=== PATIENT | female | born 2000 | race Caucasian/White ===

== ENCOUNTER 2018-07-10 17:17 | Emergency (ER) | payer SELFPAY ==
[2018-07-10] MEDS ORDERED: KETOROLAC TROMETHAMINE INJ/PF 30 MG/1 ML SDV IM ONE (18:13)
[2018-07-10] MEDS ORDERED: ONDANSETRON 4 MG TAB.RAPDIS PO ONE (18:13)
--- NOTE | 2018-07-10 18:15 | ER Document Report ---
ED Medical Screen (RME) - General Chief Complaint: Pain With Urination Stated Complaint: PAIN WITH URINATION/ABDOMINAL PAIN Time Seen by Provider: 07/10/18 18:13 Notes: 18 years old female presents today with 4-5 day history of dysuria frequency and urgency, and having bilateral lower back pain from today. As well as lower abdominal pain. Denies any nausea vomiting. Denies any constipation but she usually have a bowel movement once in 2-3 days. Her menstrual cycle ended today. Never been . TRAVEL OUTSIDE OF THE [place] IN LAST 30 DAYS: No - Related Data Allergies/Adverse Reactions: No Known Allergies Allergy (Verified 07/10/18 17:36) Past Medical History - General Last Menstrual Period: ended Jun - Social History Chew tobacco use (# tins/day): No Frequency of alcohol use: None Drug Abuse: None Renal/ Medical History: Denies: Hx Peritoneal Dialysis Physical Exam - Vital signs Vitals: Temp Pulse Resp BP Pulse Ox 98.9 F 85 16 128/73 H 98 07/10/18 17:53 07/10/18 17:53 07/10/18 17:53 07/10/18 17:53 07/10/18 17:53 Course - Vital Signs Vital signs: Temp Pulse Resp BP Pulse Ox 98.9 F 85 16 128/73 H 98 07/10/18 17:53 07/10/18 17:53 07/10/18 17:53 07/10/18 17:53 07/10/18 17:53
[2018-07-10 18:39] LABS: ABSOLUTE BASOPHILS # (AUTO) 0.1 10^3/uL (0.0-0.2); ABSOLUTE EOSINOPHILS # (AUTO) 0.3 10^3/uL (0.0-0.6); ABSOLUTE LYMPHOCYTES (AUTO) 1.9 10^3/uL (0.5-4.7); ABSOLUTE MONOCYTES (AUTO) 1.1 10^3/uL (0.1-1.4); BASOPHILS % (AUTO) 0.4 % (0-2); EOSINOPHILS % (AUTO) 1.9 % (0-6); HEMATOCRIT 41.1 % (36.0-47.0); LYMPHOCYTES % (AUTO) 12.4 % (13-45); MEAN CORPUSCULAR HEMOGLOBIN 31.6 pg (27.0-33.4); MEAN CORPUSCULAR HGB CONC 34.1 g/dL (32.0-36.0); MEAN CORPUSCULAR VOLUME 93 fl (80-97); PLATELET COUNT 388 10^3/uL (150-450); RED BLOOD COUNT 4.44 10^6/uL (3.72-5.28); RED CELL DISTRIBUTION WIDTH 12.9 % (11.5-14.0); SEGMENTED NEUTROPHILS % (AUTO) 78.3 % (42-78); TOTAL CELLS COUNTED % (AUTO) 100 %; WHITE BLOOD COUNT 15.3 10^3/uL (4.0-10.5)
[2018-07-10 18:54] LABS: ALANINE AMINOTRANSFERASE 39 U/L (9-52); ALBUMIN 4.6 g/dL (3.5-5.0); ALKALINE PHOSPHATASE 91 U/L (38-126); ANION GAP 13 (5-19); APPEARANCE,URINE SLIGHTLY-CLOUDY; ASPARTATE AMINO TRANSFERASE 23 U/L (14-36); BILIRUBIN,DIRECT 0.3 mg/dL (0.0-0.4); BILIRUBIN,TOTAL 0.5 mg/dL (0.2-1.3); BILIRUBIN,URINE NEGATIVE (NEGATIVE); BLOOD UREA NITROGEN 9 mg/dL (7-20); CALCIUM 9.6 mg/dL (8.4-10.2); CARBON DIOXIDE 27 mmol/L (22-30); CHLORIDE 103 mmol/L (98-107); COLOR,URINE YELLOW; GLUCOSE 89 mg/dL (75-110); GLUCOSE, URINE NEGATIVE (NEGATIVE); KETONES,URINE NEGATIVE (NEGATIVE); LEUKOCYTE ESTERASE,URINE MODERATE (NEGATIVE); LIPASE 86.3 U/L (23-300); NITRITE,URINE NEGATIVE (NEGATIVE); POTASSIUM 4.1 mmol/L (3.6-5.0); PROTEIN,URINE 30 mg/dL (NEGATIVE); SODIUM 142.8 mmol/L (137-145); URINE SPECIFIC GRAVITY 1.009; UROBILINOGEN,URINE NEGATIVE mg/dL (<2.0)
--- NOTE | 2018-07-10 19:48 | ER Document Report ---
ED GI/ - General Chief Complaint: Pain With Urination Stated Complaint: PAIN WITH URINATION/ABDOMINAL PAIN Time Seen by Provider: 07/10/18 18:13 Mode of Arrival: Ambulatory Information source: Patient Notes: Patient is an otherwise healthy 18-year-old female who presents with dysuria. Patient reports this started on Saturday, she denies seeking any treatment as she felt it would resolve on its own. Patient reports resolution of her symptoms for several days however today she resumed having low abdominal and low back pain. Patient also reports return of the dysuria. Patient denies any fevers, vomiting or chills. Patient reports pelvic pain but no vaginal discharge. Patient denies any past medical or surgical history. TRAVEL OUTSIDE OF THE [place] IN LAST 30 DAYS: No - Related Data Allergies/Adverse Reactions: No Known Allergies Allergy (Verified 07/10/18 17:36) Past Medical History - General Information source: Patient Last Menstrual Period: ended Jun - Social History Smoking Status: Never Smoker Chew tobacco use (# tins/day): No Frequency of alcohol use: None Drug Abuse: None Family History: Reviewed & Not Pertinent Patient has suicidal ideation: No Patient has homicidal ideation: No - Medical History Medical History: Negative Renal/ Medical History: Denies: Hx Peritoneal Dialysis Surgical Hx: Negative - Immunizations Immunizations up to date: Yes Review of Systems - Review of Systems Constitutional: No symptoms reported EENT: No symptoms reported Cardiovascular: No symptoms reported Respiratory: No symptoms reported Gastrointestinal: No symptoms reported Genitourinary: See HPI Female Genitourinary: See HPI Musculoskeletal: No symptoms reported Skin: No symptoms reported Hematologic/Lymphatic: No symptoms reported Neurological/Psychological: No symptoms reported Physical Exam - Vital signs Vitals: Temp Pulse Resp BP Pulse Ox 98.9 F 85 16 128/73 H 98 07/10/18 17:53 07/10/18 17:53 07/10/18 17:53 07/10/18 17:53 07/10/18 17:53 - Notes Notes: PHYSICAL EXAMINATION: GENERAL: Well-appearing, well-nourished and in no acute distress. HEAD: Atraumatic, normocephalic. EYES: Pupils equal round and reactive to light, extraocular movements intact, conjunctiva are normal. ENT: Nares patent, oropharynx clear without exudates. Moist mucous membranes. NECK: Normal range of motion, supple without lymphadenopathy LUNGS: Breath sounds clear to auscultation bilaterally and equal. No wheezes rales or rhonchi. HEART: Regular rate and rhythm without murmurs ABDOMEN: Soft, nontender, nondistended abdomen. No guarding, no rebound. No masses appreciated. No CVA tenderness noted. Female : Speculum examination reveals a thin white discharge from the cervical os, no cervical motion tenderness, no adnexal tenderness. Musculoskeletal: Normal range of motion, no pitting or edema. No cyanosis. NEUROLOGICAL: Cranial nerves grossly intact. Normal speech, normal gait. Normal sensory, motor exams PSYCH: Normal mood, normal affect. SKIN: Warm, Dry, normal turgor, no rashes or lesions noted. Course - Re-evaluation Re-evalutation: 07/10/18 19:47 Initial workup ordered by triage provider. CBC reveals a white blood count 15.3 with a left shift. Comprehensive metabolic panel and lipase are both unremarkable. Urinalysis with a small blood, moderate leukocyte esterase and few WBC clumps. Will order pelvic set up as patient is complaining of pelvic pain. Patient does not appear to be toxic, vital signs are stable patient interacting with provider with no distress noted. 4+ bacteria noted on wet prep, no Trichomonas, no WBCs, no yeast. Patient will be treated for both urinary tract infection/pyelonephritis as well as bacterial vaginosis. Patient's vital signs are stable, patient has not had any episodes of vomiting so I do feel the patient is appropriate for discharge. Patient was given strict ED return precautions to include development of fever, vomiting or any other symptom that is concerning to her. - Vital Signs Vital signs: Temp Pulse Resp BP Pulse Ox 98.3 F 63 16 109/63 99 07/10/18 20:36 07/10/18 20:36 07/10/18 20:36 07/10/18 20:36 07/10/18 20:36 - Laboratory Result Diagrams: 07/10/18 17:55 07/10/18 17:55 Laboratory results interpreted by me: 07/10/18 07/10/18 17:55 17:55 WBC 15.3 H Seg Neutrophils % 78.3 H Lymphocytes % 12.4 L Absolute Neutrophils 12.0 H Urine Protein 30 H Urine Blood MODERATE H Ur Leukocyte Esterase MODERATE H Discharge - Discharge Clinical Impression: Bacterial vaginosis, Pyelonephritis Urinary tract infection Qualifiers: Urinary tract infection type: site unspecified Hematuria presence: without hematuria Qualified Code(s): N39.0 - Urinary tract infection, site not specified Condition: Stable Disposition: HOME, SELF-CARE Additional Instructions: Pyelonephritis Your evaluation shows evidence of pyelonephritis. This is an infection in the kidney. Typical symptoms are fever, pain in the flank, pain on urination, and frequent urination. Many cases of pyelonephritis can be treated at home. Hospital care may be necessary for patients who are very ill, or elderly or . Pyelonephritis is treated with antibiotics. Be sure to take all the medication as prescribed. Drink plenty of liquids (about three quarts per day) . You may take acetaminophen for fever. You should feel significantly improved within two days. You should have a recheck of your urine in about one week to insure that the infection is gone. Return for a re-examination if your symptoms worsen in any way -- such as high fever, shaking chills, severe weakness or dizziness, severe pain, or inability to pass your urine. Urinary Tract Infection Your evaluation indicates that you have a urinary tract infection. This is due to germs growing in the bladder. This is a common problem. This infection usually responds quickly to antibiotics. Your antibiotic should be taken exactly as prescribed. Drink plenty of fluids -- three to four quarts a day. Occasionally, a bladder anesthetic will be prescribed to help stop the feeling of urgency until the antibiotic has a chance to clear the infection. This may cause your urine to be dark orange. Certain urine infections require a culture. If the doctor obtained a culture, the results will be back in two days. You should call to see if a change in treatment is needed. A repeat urinalysis after you finish treatment is often recommended. The physician will let you know if further testing is required. Call the doctor if you develop fever, chills, flank pain, inability to urinate, or blood in the urine. Vaginosis, Bacterial Your exam shows you have bacterial vaginosis. This condition is due to an overgrowth of bacteria in the vagina. Symptoms may include vaginal itching or pain, a smelly discharge, and sometimes burning with urination. Normally this is not transmitted by sexual contact. Vaginosis can be treated with oral or topical antibiotics. Metronidazole ( Flagyl) pills are usually effective. Topical vaginal creams include Cleocin and Metro-Gel. You should avoid sexual contact until your symptoms are all better. Call the doctor if you develop pelvic pain, fever, or problems with urination, or if you don't improve as expected. Rocephin You have been given an injection of an antibiotic called Rocephin ( ceftriaxone). Sometimes the injection must be combined with antibiotic pills. For some infections, such as an uncomplicated ear infection, Rocephin provides all the antibiotic that's needed. The antibiotic will be in your body for about two days. For serious infections, we usually repeat doses of Rocephin daily. Side effects are very unusual following a shot. Women may develop vaginal yeast infections, and babies can get yeast (thrush) in the mouth following the use of antibiotics. Contact your physician if you have symptoms with this medication. Allergy to this antibiotic can result in hives, wheezing, faintness, or itching. If symptoms of allergy occur, call the doctor at once. Antinausea Medication You have been given a medication to suppress nausea and vomiting. This type of medication can be given as a shot, pill, or suppository. It will usually last for many hours. Pills and shots usually last six to eight hours, suppositories last about 12 hours. For the typical illness, only one or two doses of the medication may be necessary. Mild lightheadedness may occur. This type of medicine can cause drowsiness. Do not drive or operate dangerous machinery while under its influence. Do not mix with alcohol. See your doctor at once if you have muscle spasms or tightness, or uncontrollable motions (particularly of the neck, mouth, or jaw). Persistent vomiting or severe lightheadedness should also be evaluated by the physician. Please take all antibiotics as prescribed, continue the entire course even if your symptoms resolve. Please return to the emergency department if you develop worsening pain, vomiting, fever or any other symptom that is concerning to you. Please follow-up with your primary care doctor in the next 2-3 days for a recheck. Prescriptions: Cephalexin Monohydrate [Keflex 500 mg Capsule] 500 mg PO QID #20 capsule Metronidazole [Flagyl 500 mg Tablet] 500 mg PO BID #21 tablet Forms: Return to Work
--- NOTE | 2018-07-10 19:52 | RADIOLOGY REPORT (SQ) ---
EXAM DESCRIPTION: KUB/ABDOMEN (SINGLE VIEW) COMPLETED DATE/TIME: 07/10/2018 7:01 pm REASON FOR STUDY: Abdominal pain COMPARISON: None. NUMBER OF VIEWS: One view. TECHNIQUE: Supine radiographic image of the abdomen acquired. LIMITATIONS: None. FINDINGS: BOWEL GAS PATTERN: Normal bowel gas pattern. No dilated loops. CALCIFICATIONS: No suspicious calcifications. SOFT TISSUES: No gross mass or suggestion of organomegaly. HARDWARE: None in the abdomen. BONES: No acute fracture. No worrisome bone lesions. OTHER: No other significant finding. IMPRESSION: NO RADIOGRAPHIC EVIDENCE FOR ACUTE ABDOMINAL DISEASE. TECHNICAL DOCUMENTATION: JOB ID: [id number] [employer]- All Rights Reserved Reading location - IP/workstation name: [email or web address]
[2018-07-10] MEDS ORDERED: LIDOCAINE 1% INJ-PF (10 MG/ML) 30 ML SDV INJ ONE (20:12)
[2018-07-10] MEDS ORDERED: CEFTRIAXONE INJ 1000 MG VIAL IM ONE (20:12)
[2018-07-10] MEDS ORDERED: CEPHALEXIN 500 MG CAPSULE PO ONE (20:13)
[2018-07-10 20:44] VITALS: BP 109/63
[2018-07-10 20:50] LABS: T.VAGINALIS (WET MOUNT) NO TRICHOMONAS SEEN; WBCS (WET MOUNT) RARE WBCS SEEN; YEAST (WET MOUNT) NO YEAST SEEN
[2018-07-10 20:51] LABS: BACTERIA (WET MOUNT) 4+ BACTERIA SEEN; EPITHELIALS (WET MOUNT) 3+ EPITHELIALS SEEN; RBCS (WET MOUNT) NO RBCS SEEN
[2018-07-10] MEDS ORDERED: ONDANSETRON ODT 4 MG TAB (6 TAB/ER DISP) PO PRN (21:04)
[2018-07-10] MEDS ORDERED: HYDROCODONE/ACETAMINOPHEN 5-325 MG (6 TAB/ER DISP) PO PRN (21:04)
[2018-07-10 22:16] LABS: CHLAM PCR NOT DETECTED (NOT DETECT); GON PCR NOT DETECTED (NOT DETECT)
== END 2018-07-10 21:25 | disposition home or self-care (01) ==
LOC: ER 17:17
DX: N12 Tubulo-interstitial nephritis, not specified as acute or chronic (principal); N76.0 Acute vaginitis; B96.89 Other specified bacterial agents as the cause of diseases classified elsewhere; R30.0 Dysuria; R10.9 Unspecified abdominal pain; M54.5 Low back pain
CPT/HCPCS: 99284; 96372; 96374; 36415; 87210; 83690; 85025; 81025; 80053; 81001; 87491; 87591; 74018; S0119; J3490; J1885; J0696

== ENCOUNTER 2018-07-18 09:46 | Emergency (ER) | payer SELFPAY ==
[2018-07-18 09:52] VITALS: BP 114/71
[2018-07-18] MEDS ORDERED: LIDOCAINE 5% (700 MG) TRANSDERMAL ADH..PATCH TP ONE (10:00)
--- NOTE | 2018-07-18 10:04 | ER Document Report ---
ED Medical Screen (RME) - General Chief Complaint: Flank Pain Stated Complaint: BACK PAIN Time Seen by Provider: 07/18/18 09:53 Mode of Arrival: Ambulatory Information source: Patient TRAVEL OUTSIDE OF THE [place] IN LAST 30 DAYS: No - HPI Patient complains to provider of: Back pain Onset: Other - This 18-year-old female represents for back pain along the left side which she was seen for last week, she has had 8 days of treatment with both antibiotics and antinausea medications and narcotics without any improvement in her symptoms continues to have nausea as well as flank pain, in addition of that she now has harder stools than previously. She was diagnosed with a kidney infection previously as well as bacterial vaginosis and has finished her treatment for that but continues to feel ill. - Related Data Allergies/Adverse Reactions: No Known Allergies Allergy (Verified 07/10/18 17:36) Past Medical History - Social History Chew tobacco use (# tins/day): No Frequency of alcohol use: None Drug Abuse: None Renal/ Medical History: Denies: Hx Peritoneal Dialysis - Immunizations Immunizations up to date: Yes Physical Exam - Vital signs Vitals: Temp Pulse Resp BP Pulse Ox 98.2 F 72 14 114/71 98 07/18/18 09:51 07/18/18 09:51 07/18/18 09:51 07/18/18 09:51 07/18/18 09:51 - Notes Notes: Well-appearing female with left-sided flank pain, no tenderness to percussion along the CVA Course - Re-evaluation Re-evalutation: 07/18/18 10:03 1-year-old female represents for dysuria as well as flank pain, now has hard stools, likely result of her narcotic use. We will obtain CT renal stone protocol to assess for possible hydronephrosis or obstructing renal calculi on the left side. We will administer Lidoderm patches for back pain. We will obtain urinalysis and urine as well. This patient does not have an obvious immediate life threat, will plan for further investigation analysis and reassessment. 07/18/18 10:03 - Vital Signs Vital signs: Temp Pulse Resp BP Pulse Ox 98.2 F 72 14 114/71 98 07/18/18 09:51 07/18/18 09:51 07/18/18 09:51 07/18/18 09:51 07/18/18 09:51
--- NOTE | 2018-07-18 10:32 | ER Document Report ---
ED GI/ - General Chief Complaint: Flank Pain Stated Complaint: BACK PAIN Time Seen by Provider: 07/18/18 09:53 Mode of Arrival: Ambulatory TRAVEL OUTSIDE OF THE [place] IN LAST 30 DAYS: No - HPI Patient complains to provider of: Abdominal pain Onset: Other - This 18-year-old female presents for evaluation of greater than 8 days of left back pain as well as abdominal pain nausea with some associated cramping, she was seen last week for dysuria as well as back pain which time she was told she likely had a kidney infection she underwent a pelvic exam at that time was diagnosed with bacterial vaginosis as well, she is been pursuing treatment during this time with nausea medicine, pain medication and antibiotics but is continued to have symptoms, she notes that she initially had diarrhea which progressed and now has hard stools which is somewhat painful for her to go to the bathroom with. She denies any fevers or chills at this time, denies any shortness of breath or chest pain, lightheadedness diaphoresis. She is concerned because the symptoms have persisted he says that they have not been doing much better, she did miss work yesterday as well as today because of this pain she represented because the pain did not improve. She denies any history of nephrolithiasis in the past, denies any history of abdominal surgery in the past. - Related Data Allergies/Adverse Reactions: No Known Allergies Allergy (Verified 07/10/18 17:36) Past Medical History - General Information source: Patient - Social History Smoking Status: Never Smoker Chew tobacco use (# tins/day): No Frequency of alcohol use: None Drug Abuse: None Family History: Reviewed & Not Pertinent Patient has suicidal ideation: No Patient has homicidal ideation: No Renal/ Medical History: Denies: Hx Peritoneal Dialysis - Immunizations Immunizations up to date: Yes Review of Systems - Review of Systems -: Yes All other systems reviewed and negative Physical Exam - Vital signs Vitals: Temp Pulse Resp BP Pulse Ox 98.2 F 72 14 114/71 98 07/18/18 09:51 07/18/18 09:51 07/18/18 09:51 07/18/18 09:51 07/18/18 09:51 - General General appearance: Appears well In distress: None - HEENT Head: Normocephalic Eyes: Normal Conjunctiva: Normal - Respiratory Respiratory status: No respiratory distress Chest status: Nontender Breath sounds: Normal Chest palpation: Normal - Cardiovascular Rhythm: Regular Heart sounds: Normal auscultation Murmur: No - Abdominal Inspection: Normal Distension: No distension Tenderness: Nontender Organomegaly: No organomegaly - Back Back: Normal - Extremities General upper extremity: Normal inspection General lower extremity: Normal inspection - Neurological Neuro grossly intact: Yes Cognition: Normal Orientation: AAOx4 Thor Coma Scale Eye Opening: Spontaneous [place] Coma Scale Verbal: Oriented Thor Coma Scale Motor: Obeys Commands Thor Coma Scale Total: 15 Speech: Normal Cranial nerves: Normal - Psychological Associated symptoms: Normal affect Course - Re-evaluation Re-evalutation: 07/18/18 10:29 This 18-year-old female as previously stated presented for evaluation of left flank pain with constipation and some nausea. On examination she is remarkably well-appearing, has no CVA tenderness to percussion. Her abdominal examination is benign. - Vital Signs Vital signs: Temp Pulse Resp BP Pulse Ox 98.2 F 72 14 114/71 98 07/18/18 09:51 07/18/18 09:51 07/18/18 09:51 07/18/18 09:51 07/18/18 09:51 - Laboratory Laboratory results interpreted by me: 07/18/18 10:00 Ur Leukocyte Esterase TRACE H Discharge - Discharge Clinical Impression: Flank pain Constipation Qualifiers: Constipation type: unspecified constipation type Qualified Code(s): K59.00 - Constipation, unspecified Condition: Good Disposition: HOME, SELF-CARE Instructions: Abdominal Pain ([facility]), Bulk Laxatives Additional Instructions: You were seen for abdominal pain and flank pain today, you had an evaluation including a CT of the abdomen as well as a urine test. Use the MiraLAX for the next several days as needed to obtain normal bowel movements, if he did not have relief of your symptoms in the next 4 days use the magnesium citrate to help with her symptoms. Return for worsening fevers chills nausea vomiting or inability to eat or drink. Prescriptions: Magnesium Citrate [Citrate of Magnesia 296 ml Bottle] 296 ml PO DAILY PRN #1 bottle PRN Reason: Polyethylene Glycol 3350 [Miralax Powder 17 gm/Packet] 1 packet PO DAILY #1 pkg Forms: Special Work Note
--- NOTE | 2018-07-18 10:38 | RADIOLOGY REPORT (SQ) ---
EXAM DESCRIPTION: CT ABD/PELVIS NO ORAL OR IV COMPLETED DATE/TIME: 07/18/2018 10:10 am REASON FOR STUDY: concern for nephrolithiasis on the left COMPARISON: None. TECHNIQUE: CT scan of the abdomen and pelvis performed without intravenous or oral contrast. Images reviewed with lung, soft tissue, and bone windows. Reconstructed coronal and sagittal MPR images revi ewed. All images stored on PACS. All CT scanners at this facility use dose modulation, iterative reconstruction, and/or weight based d osing when appropriate to reduce radiation dose to as low as reasonably achievable (ALARA). [facility]: Dose Right [facility]: CareDose [facility]: Dose Right [facility]: Teradose 4D [facility]: Smart Camera360 RADIATION DOSE: CT Rad equipment meets quality standard of care and radiation dose reduction techniq ues were employed. CTDIvol: 4.9 mGy. DLP: 260 mGy-cm.mGy. LIMITATIONS: None. FINDINGS: LOWER CHEST: No significant findings. No nodules or infiltrates. NON-CONTRASTED LIVER, SPLEEN, ADRENALS: Evaluation limited by lack of IV contrast. No identified sign ificant masses. PANCREAS: No masses. No peripancreatic inflammatory changes. GALLBLADDER: No identified stones by CT criteria. No inflammatory changes to suggest cholecystitis. RIGHT KIDNEY AND URETER: No suspicious masses. Assessment limited by lack of IV contrast. No signif icant calcifications. No hydronephrosis or hydroureter. LEFT KIDNEY AND URETER: No suspicious masses. Assessment limited by lack of IV contrast. No signifi cant calcifications. No hydronephrosis or hydroureter. AORTA AND RETROPERITONEUM: No aneurysm. No retroperitoneal masses or adenopathy. BOWEL AND PERITONEAL CAVITY: No obvious masses or inflammatory changes. No free fluid. APPENDIX: Not identified. PELVIS, BLADDER, AND ABDOMINAL WALL:No abnormal masses. No free fluid. Bladder normal. BONES: No significant findings. OTHER: No other significant finding. IMPRESSION: NO SIGNIFICANT OR ACUTE PROCESS IN THE ABDOMEN OR PELVIS. COMMENT: Quality ID # [id number]: Final reports with documentation of one or more dose reduction techniques (e.g., Automated exposure control, adjustment of the mA and/or kV according to patient size, use of iterative reconstruction technique) TECHNICAL DOCUMENTATION: JOB ID: [id number] [employer]- All Rights Reserved Reading location - IP/workstation name: [email or web address]
[2018-07-18 11:08] LABS: APPEARANCE,URINE CLEAR; BILIRUBIN,URINE NEGATIVE (NEGATIVE); COLOR,URINE YELLOW; GLUCOSE, URINE NEGATIVE (NEGATIVE); KETONES,URINE NEGATIVE (NEGATIVE); LEUKOCYTE ESTERASE,URINE TRACE (NEGATIVE); NITRITE,URINE NEGATIVE (NEGATIVE); PROTEIN,URINE NEGATIVE (NEGATIVE); URINE SPECIFIC GRAVITY 1.013; UROBILINOGEN,URINE NEGATIVE mg/dL (<2.0)
== END 2018-07-18 11:40 | disposition home or self-care (01) ==
LOC: ER 09:46
DX: K59.00 Constipation, unspecified (principal); N76.0 Acute vaginitis; B96.89 Other specified bacterial agents as the cause of diseases classified elsewhere; M54.9 Dorsalgia, unspecified; R11.0 Nausea; R10.9 Unspecified abdominal pain
CPT/HCPCS: 74176; 81001; 81025; 99284

== ENCOUNTER 2020-09-08 17:48 | Emergency (ER) | payer SELFPAY ==
--- NOTE | 2020-09-08 19:38 | ER Document Report ---
ED Medical Screen (RME) - General Stated Complaint: ABDOMINAL CRAMPING Time Seen by Provider: 09/08/20 19:31 Notes: Patient is a 20-year-old female presents emergency department with a chief complaint of cramping in her mid lower abdomen. Patient states that her last menstrual cycle was August 04. States that she took 2 tests that were negative and 2 tests that were positive. Denies any unusual vaginal discharge. Denies any excessive bleeding. Exam: Soft, mildly tender mid lower abdomen. I have greeted and performed a rapid initial assessment of this patient. A comprehensive ED assessment and evaluation of the patient, analysis of test results and completion of medical decision making process will be conducted by an additional ED providers. TRAVEL OUTSIDE OF THE [place] IN LAST 30 DAYS: No - Related Data Allergies/Adverse Reactions: No Known Allergies Allergy (Verified 07/10/18 17:36) Past Medical History Renal/ Medical History: Denies: Hx Peritoneal Dialysis - Immunizations Immunizations up to date: Yes Physical Exam - Vital signs Vitals: Temp Pulse Resp BP Pulse Ox 98.9 F 90 16 134/78 H 96 09/08/20 18:03 09/08/20 18:03 09/08/20 18:03 09/08/20 18:03 09/08/20 18:03 Course - Vital Signs Vital signs: Temp Pulse Resp BP Pulse Ox 98.9 F 90 16 134/78 H 96 09/08/20 18:03 09/08/20 18:03 09/08/20 18:03 09/08/20 18:03 09/08/20 18:03
[2020-09-08 20:20] LABS: ABSOLUTE EOSINOPHILS # (AUTO) 0.2 10^3/uL (0.0-0.6); ABSOLUTE LYMPHOCYTES (AUTO) 1.7 10^3/uL (0.5-4.7); ABSOLUTE MONOCYTES (AUTO) 0.8 10^3/uL (0.1-1.4); ABSOLUTE NEUT (AUTO) 7.6 10^3/uL (1.7-8.2); BASOPHILS % (AUTO) 0.4 % (0-2); EOSINOPHILS % (AUTO) 1.9 % (0-6); HEMATOCRIT 41.7 % (36.0-47.0); HEMOGLOBIN 14.1 g/dL (12.0-15.5); LYMPHOCYTES % (AUTO) 16.7 % (13-45); MEAN CORPUSCULAR HEMOGLOBIN 31.1 pg (27.0-33.4); MEAN CORPUSCULAR HGB CONC 33.9 g/dL (32.0-36.0); MEAN CORPUSCULAR VOLUME 92 fl (80-97); MONOCYTES % (AUTO) 7.9 % (3-13); PLATELET COUNT 365 10^3/uL (150-450); RED BLOOD COUNT 4.54 10^6/uL (3.72-5.28); RED CELL DISTRIBUTION WIDTH 12.9 % (11.5-14.0); SEGMENTED NEUTROPHILS % (AUTO) 73.1 % (42-78); TOTAL CELLS COUNTED % (AUTO) 100 %; WHITE BLOOD COUNT 10.4 10^3/uL (4.0-10.5)
[2020-09-08 20:40] LABS: ALBUMIN 4.9 g/dL (3.5-5.0); ALKALINE PHOSPHATASE 88 U/L (38-126); ANION GAP 11 (5-19); ASPARTATE AMINO TRANSFERASE 24 U/L (14-36); BILIRUBIN,DIRECT 0.2 mg/dL (0.0-0.4); BILIRUBIN,TOTAL 0.3 mg/dL (0.2-1.3); BLOOD UREA NITROGEN 13 mg/dL (7-20); CALCIUM 9.7 mg/dL (8.4-10.2); CARBON DIOXIDE 26 mmol/L (22-30); CHLORIDE 103 mmol/L (98-107); GLUCOSE 85 mg/dL (75-110); POTASSIUM 4.1 mmol/L (3.6-5.0); TOTAL PROTEIN 7.9 g/dL (6.3-8.2)
[2020-09-08 21:05] LABS: APPEARANCE,URINE SLIGHTLY-CLOUDY; BILIRUBIN,URINE NEGATIVE (NEGATIVE); COLOR,URINE YELLOW; GLUCOSE, URINE NEGATIVE (NEGATIVE); KETONES,URINE NEGATIVE (NEGATIVE); LEUKOCYTE ESTERASE,URINE TRACE (NEGATIVE); NITRITE,URINE NEGATIVE (NEGATIVE); PROTEIN,URINE 30 mg/dL (NEGATIVE); URINE SPECIFIC GRAVITY 1.026; UROBILINOGEN,URINE NEGATIVE mg/dL (<2.0)
--- NOTE | 2020-09-08 22:13 | RADIOLOGY REPORT (SQ) ---
EXAM DESCRIPTION: US TRANSVAGINAL COMPLETED DATE/TME: 09/08/2020 19:35 CLINICAL HISTORY: abdominal cramping possibly COMPARISON: None. FINDINGS: Transvaginal images of the pelvis were submitted. The uterus measures 7.8 x 3.9 x 4.2 cm. The endometrial complex is thickened measuring approximately 1.3 cm. There is no discrete intrauterine or extrauterine visualized. Right ovary measures 2 x 1.6 x 1.5 cm. The left ovary measures 3.3 x 2.4 2.9 cm and contains a 2.1 x 1.8 x 1.8 cm complex cyst which could represent the corpus luteum/hemorrhagic cyst. There is no sonographic evidence of ovarian torsion. There is no free fluid in the pelvis. IMPRESSION: No discrete intrauterine or extrauterine visualized. Correlation with serial beta-hCG levels recommended and follow-up ultrasound as indicated. Complex left ovarian cyst could represent a hemorrhagic cyst/corpus luteum.
--- NOTE | 2020-09-09 02:05 | ER Document Report ---
ED GI/ - General Chief Complaint: Abdominal Pain Stated Complaint: ABDOMINAL CRAMPING Time Seen by Provider: 09/08/20 19:31 Primary Care Provider: [facility] [Outside] - Follow up as needed Notes: Patient is a 20-year-old female presents emergency department with a chief complaint of cramping in her mid lower abdomen. Patient states that her last menstrual cycle was August 04. States that she took 2 tests that were negative and 2 tests that were positive. Denies any unusual vaginal discharge. Denies any excessive bleeding. TRAVEL OUTSIDE OF THE [place] IN LAST 30 DAYS: No - Related Data Allergies/Adverse Reactions: No Known Allergies Allergy (Verified 07/10/18 17:36) Past Medical History - General Information source: Patient - Social History Smoking Status: Never Smoker Chew tobacco use (# tins/day): No Frequency of alcohol use: None Drug Abuse: None Family History: Reviewed & Not Pertinent Patient has homicidal ideation: No - Medical History Medical History: Negative Renal/ Medical History: Denies: Hx Peritoneal Dialysis Surgical Hx: Negative - Immunizations Immunizations up to date: Yes Review of Systems - Review of Systems Gastrointestinal: Abdominal pain - low abd cramping Physical Exam - Vital signs Vitals: Temp Pulse Resp BP Pulse Ox 98.9 F 90 16 134/78 H 96 09/08/20 18:03 09/08/20 18:03 09/08/20 18:03 09/08/20 18:03 09/08/20 18:03 - Notes Notes: PHYSICAL EXAMINATION: GENERAL: Well-appearing, well-nourished and in no acute distress. HEAD: Atraumatic, normocephalic. EYES: Pupils equal round and reactive to light, extraocular movements intact, conjunctiva are normal. ENT: Nares patent, oropharynx clear without exudates. Moist mucous membranes. NECK: Normal range of motion, supple without lymphadenopathy LUNGS: Breath sounds clear to auscultation bilaterally and equal. No wheezes rales or rhonchi. HEART: Regular rate and rhythm without murmurs ABDOMEN: Soft, nontender, nondistended abdomen. No guarding, no rebound. No masses appreciated. Female : No CVA tenderness. Musculoskeletal: Normal range of motion, no pitting or edema. No cyanosis. NEUROLOGICAL: Cranial nerves grossly intact. Normal speech, normal gait. Normal sensory, motor exams PSYCH: Normal mood, normal affect. SKIN: Warm, Dry, normal turgor, no rashes or lesions noted. Course - Re-evaluation Re-evalutation: Laboratory 09/08/20 09/08/20 09/08/20 19:50 19:50 19:50 WBC 10.4 RBC 4.54 Hgb 14.1 Hct 41.7 MCV 92 MCH 31.1 MCHC 33.9 RDW 12.9 Plt Count 365 Lymph % (Auto) 16.7 [place] % (Auto) 7.9 Eos % (Auto) 1.9 Baso % (Auto) 0.4 Absolute Neuts (auto) 7.6 Absolute Lymphs (auto) 1.7 Absolute Monos (auto) 0.8 Absolute Eos (auto) 0.2 Absolute Basos (auto) 0.0 Seg Neutrophils % 73.1 Sodium 139.5 Potassium 4.1 Chloride 103 Carbon Dioxide 26 Anion Gap 11 BUN 13 Creatinine 0.67 Est GFR ( Amer) > 60 Est GFR (MDRD) Non-Af > 60 Glucose 85 Calcium 9.7 Total Bilirubin 0.3 Direct Bilirubin 0.2 Neonat Total Bilirubin Not Reportable Neonat Direct Bilirubin Not Reportable Neonat Indirect Bili Not Reportable AST 24 ALT 15 Alkaline Phosphatase 88 Total Protein 7.9 Albumin 4.9 Lipase 143.7 Beta HCG, Quant 188.49 H Total Beta HCG POSITIVE Urine Color YELLOW Urine Appearance SLIGHTLY-CLOUDY Urine pH 7.0 Ur Specific [place] 1.026 Urine Protein 30 H Urine Glucose (UA) NEGATIVE Urine Ketones NEGATIVE Urine Blood NEGATIVE Urine Nitrite NEGATIVE Urine Bilirubin NEGATIVE Urine Urobilinogen NEGATIVE Ur Leukocyte Esterase TRACE H Urine WBC (Auto) 2 Urine RBC (Auto) 4 Urine Bacteria (Auto) TRACE Squamous Epi Cells Auto 8 Urine Mucus (Auto) OCC Urine Ascorbic Acid NEGATIVE Transvaginal US 09/08/20 19:35 IMPRESSION: No discrete intrauterine or extrauterine visualized. Correlation with serial beta-hCG levels recommended and follow-up ultrasound as indicated. Complex left ovarian cyst could represent a hemorrhagic cyst/corpus luteum. - Vital Signs Vital signs: Temp Pulse Resp BP Pulse Ox 98.9 F 90 16 126/86 H 96 09/08/20 18:03 09/08/20 18:03 09/08/20 18:03 09/09/20 02:10 09/08/20 18:03 - Laboratory Result Diagrams: 09/08/20 19:50 09/08/20 19:50 Laboratory results interpreted by me: 09/08/20 09/08/20 19:50 19:50 Beta HCG, Quant 188.49 H Urine Protein 30 H Ur Leukocyte Esterase TRACE H Discharge - Discharge Clinical Impression: Positive blood test Condition: Stable Disposition: HOME, SELF-CARE Additional Instructions: Please follow-up with the health department to establish care. A copy of your ultrasound and lab work were given to you with your discharge papers for their review. Your test today in your blood work was positive however it was low. It is likely a very early . There was no noted on the ultrasound again this could be because it is early. Please make sure to return to the emergency department immediately if you start having severe abdominal pain or vaginal bleeding. Forms: Return to Work Referrals: [facility] [Outside] - Follow up as needed
[2020-09-09 02:13] VITALS: BP 126/86
== END 2020-09-09 02:15 | disposition home or self-care (01) ==
LOC: ER 17:48
DX: R10.30 Lower abdominal pain, unspecified (principal); N83.202 Unspecified ovarian cyst, left side; Z32.01 Encounter for pregnancy test, result positive
CPT/HCPCS: 36415; 76817; 80053; 81001; 83690; 84702; 85025; 93976; 99284

== ENCOUNTER → 2020-09-29 | Outpatient (CLI) | payer SELFPAY ==
--- NOTE | 2020-09-29 16:08 | RADIOLOGY REPORT (SQ) ---
EXAM DESCRIPTION: U/S [id number] TRNABD 1GES W/ODOP IMAGES COMPLETED DATE/TIME: 09/29/2020 3:00 pm REASON FOR STUDY: Z34.01 ENCNTR FOR SUPRVSN OF NORMAL FIRST PREG, FIRST TRIMESTER Z34.01 ENCNTR FOR SUPRVSN OF NORMAL FIRST PREG, FIRST TRIMES COMPARISON: None. TECHNIQUE: Transabdominal static and realtime grayscale images acquired of the pelvis. Additional se lected spectral and color Doppler images recorded. All images stored on PACs. bHCG: Not available. CLINICAL DATES: 8 weeks 0 days LIMITATIONS: None. FINDINGS: FETUS: Single Living intrauterine . ULTRASOUND EGA: 7 weeks 0 days ULTRASOUND GABBY: 05/18/2021 EFW: Not applicable less than 20 weeks. CRL: 0.9 cm FHR: 135 beats per minute. SURVEY: Too early to assess. AMNIOTIC FLUID: Adequate amount. PLACENTA: Not yet developed due to early gestation. SUBCHORIONIC BLEED: No. SIZE OF BLEED: Not applicable. UTERUS: No masses. No anomalies. CERVICAL LENGTH: 2.7 cm Closed. RIGHT ADNEXA: Ovary not identified due to poor acoustical window. No adnexal free fluid. No adnexal masses. LEFT ADNEXA: Ovary not identified due to poor acoustical window. No adnexal free fluid. No adnexal masses. FREE FLUID: None. OTHER: No other significant finding. IMPRESSION: LIVING INTRAUTERINE . EGA 7 weeks, 0 days Trimester of : First trimester - 0 to 13 weeks. TECHNICAL DOCUMENTATION: JOB ID: [id number] 2010 [employer]- All Rights Reserved Reading location - IP/workstation name: [email or web address]
== END ==
LOC: RAD 14:15
PROVIDERS: ATTEND Midwife
DX: Z34.01 Encounter for supervision of normal first pregnancy, first trimester (principal); Z3A.08 8 weeks gestation of pregnancy
CPT/HCPCS: 76801